=== PATIENT | male | born 1995 | race Caucasian/White ===

== ENCOUNTER 2022-01-01 01:22 | Emergency (ER) | payer OTHER, SELFPAY ==
--- NOTE | ~2022-01-01 | XR_ITS ---
EXAMINATION: XR foot RT min 3V DATE: 01/01/2022 02:05 INDICATION: Right foot pain, puncture wound TECHNIQUE: Dorsoplantar, lateral, and 2 oblique views of the right foot were obtained. COMPARISON: None. FINDINGS: There is medial soft tissue swelling of the foot. No radiopaque foreign body is identified. There is no fracture, dislocation, or subluxation. The joint spaces are normal. IMPRESSION: 1. Medial soft tissue swelling of the foot without acute osseous abnormality or radiopaque foreign fide dy. Reviewed, dictated and finalized at location B. IMPRESSION: 1. Medial soft tissue swelling of the foot without acute osseous abnormality or radiopaque foreign body.
[2022-01-01 01:22] VITALS: BP 153/76; PULSE 91; RESP 16; TEMP 36.3; O2SAT 96
[2022-01-01] MEDS: ACETAMINOPHEN 325 MG TABLET 650 MG PO (01:52)
[2022-01-01] MEDS: TETANUS,DIPHTHERIA,AC PERTUSSIS ADULT 0.5 ML (ADACEL) IM (01:56)
--- NOTE | 2022-01-01 02:10 | ED.WOUNDLAC ---
HPI - Wound/Laceration General Chief Complaint: Wound/Laceration Stated Complaint: PAIN Time Seen by Provider: 01/01/22 01:24 Source: patient and RN notes reviewed Mode of arrival: EMS Limitations: no limitations History of Present Illness Onset (ago): day(s) (1) Extremity Location: Left: foot Place: home Patient tetanus UTD: No Context: accidental Associated symptoms: pain Related Data Allergies Allergy/AdvReac Type Severity Reaction Status Date / Time morphine Allergy Swelling Verified 01/01/22 01:29 of Lip/Tongue/Throat Penicillins Allergy Swelling Verified 01/01/22 01:29 of Lip/Tongue/Throat Review of Systems Review of Systems: All systems reviewed & are unremarkable except as noted in HPI and below Constitutional: Constitutional: Reports no additional constitutional complaints Eyes: Eyes: Reports no additional eye complaints ENT: Reports system reviewed and no additional complaints, except as documented Cardiovascular: Cardiovascular: Reports no additional cardiovascular complaints Respiratory: Respiratory: Reports no additional respiratory complaints Gastrointestinal: Gastrointestinal: Reports no additional gastrointestinal complaints Musculoskeletal: Musculoskeletal: Reports no additional musculoskeletal complaints Integumentary/Breasts: Skin/Breast: Reports system reviewed and no additional complaints, except as docu Neurologic: Reports system reviewed and no additional complaints, except as documented Psychiatric: Psychiatric: Reports no additional psychiatric complaints Endocrine: Endocrine: Reports no additional endocrine complaints Hematologic/Lymphatic: Hematologic/Lymphatic: Reports no additional hematologic/lymphatic complaints Allergic/Immunologic: Allergic/Immunologic: Reports no additional allergic/immunologic complaints PMFSH Past Medical History Medical History A-fib Mitral regurgitation Mood disorder Seizures Surgical History Surgical History History of appendectomy Social History Social History Smoking status: Never smoker Alcohol intake: never Substance use: never Gender identity (if verbalized by the patient): Male Exam Const: General: healthy appearing and no acute distress Nutritional Appearance: well nourished Orientation/consciousness: patient oriented x3 Limitations: no limitations HENMT: Head: normal to inspection Ears: external ears normal, TM's normal bilaterally and EAC's normal General nose exam: Normal external nose present and Normal nares present Face and sinus: normal facial exam and sinuses nontender Mouth: Yes Normal oral and palatal mucosa present and Yes moist mucous membranes Teeth and gingiva: dentition normal Throat: posterior oropharynx normal Eyes: Conjunctivae: conjunctivae normal Pupils: Equal, round and reactive pupils present EOM: EOMs intact bilaterally Neck: Neck: normal visual inspection, no lymphadenopathy and no meningeal signs Chest: Chest palpation & inspection: normal inspection of the chest Resp: Effort & Inspection: normal respiratory effort Auscultation: clear to auscultation bilaterally Cardio: Rate: regular rate Rhythm: regular rhythm GI: GI Palp: Yes Soft to palpation and No Tenderness to palpation present (GI) Auscultation: normal bowel sounds : General: Yes bladder normal to palpation and Yes no CVA tenderness Back/Spine/Pelvis: Back: no CVA tenderness Skin: General skin exam: normal color Rashes: no rashes Wounds: no wounds Neuro: General: patient oriented x3, moves all extremities, no meningeal signs, no focal motor deficits and CN's II-XI intact bilaterally Cranial nerves: Yes Equal, round and reactive pupils present and Yes Nystagmus not present Speech: normal speech Gait exam (Neuro): Normal gait pres
[2022-01-01] MEDS: cefTRIAXone 1 GM, LIDOCAINE HCL 1% LOCAL INJ 2.1 ML IM (02:16)
[2022-01-01 03:05] VITALS: BP 135/72; PULSE 73; RESP 16; O2SAT 95
== END 2022-01-01 03:09 | disposition home or self-care (01) ==
PROVIDERS: Emergency Provider Emergency Medicine; PCP Family Medicine
DX: S91.331A Puncture wound without foreign body, right foot, initial encounter (principal); W45.0XXA Nail entering through skin, initial encounter
CPT/HCPCS: 73630; 90471; 90715; 96372; 99283; A9270; J0696

== ENCOUNTER 2022-03-23 13:43 | Outpatient (CLI) | payer OTHER, SELFPAY ==
--- NOTE | 2022-03-23 13:53 | ECG_ITS ---
Measurements Intervals [place] Rate: 72 P: 44 OK: 172 QRS: 58 QRSD: 96 T: 62 QT: 381 QTc: 420 Interpretive Statements SINUS RHYTHM NORMAL ECG NO PREVIOUS ECG AVAILABLE FOR COMPARISON Electronically Signed On 03-23-2022 15:59:33 CDT by Berto Meza D.O.
== END 2022-03-23 13:44 | disposition home or self-care (01) ==
LOC: CHSCARD 13:47
PROVIDERS: PCP Family Medicine; Visit Provider Internal Medicine Cardiovascular Disease
DX: I34.0 Nonrheumatic mitral (valve) insufficiency (principal)
CPT/HCPCS: 93005

== ENCOUNTER 2022-04-10 07:31 | Outpatient (CLI) | payer OTHER, SELFPAY ==
--- NOTE | 2022-04-10 07:53 | ECHO_ITS ---
Patient Info Name: Frank Johnson Age: 26 years : 1995 Gender: Male Ht: 67 in Wt: 320 lbs BSA: 2.70 m2 HR: 73 bpm BP: 149 / 80 mmHg Technical Quality: Fair Exam Date: 04/10/2022 8:20 AM Exam Location: [facility] Patient Status: Outpatient Admit Date: 04/10/2022 Staff Ordering Physician: Berto Meza DO Early Breastfeeding Care Specialist: Basilio Trevizo RDCS, RT Attending Provider: Berto Meza DO Referring Physician: Derrick MCKEON; Exam Type: CA echo dop color flow w con Study Info Indications I34.0 - Nonrheumatic mitral (valve) insufficiency Complete two-dimensional, color flow and Doppler transthoracic echocardiogram is performed. Strain analysis performed. Summary 1. Complete two-dimensional, color flow and Doppler transthoracic echocardiogram is performed. 2. Left ventricular chamber dimension is normal. 3. Left ventricular systolic function is normal, estimated at 60-65%. 4. There is moderately increased left ventricular wall thickness. 5. The left ventricular diastolic function is abnormal. 6. E/e' 13 is mildly elevated. 7. Global longitudinal strain is abnormal at -9.2%. 8. Left atrial chamber dimension is mildly enlarged. 9. There is mild aortic valve sclerosis. 10. There is moderate aortic valve regurgitation. 11. There is mild mitral valve regurgitation. 12. There is trace tricuspid valve regurgitation. 13. No pulmonary hypertension, estimated pulmonary arterial systolic pressure is 26 mmHg. 14. There is trace pulmonic regurgitation. Left Ventricle E/e' 13 is mildly elevated. Global longitudinal strain is abnormal at -9.2%. Left ventricular chamber dimension is normal. Left ventricular systolic function is normal, estimated at 60-65%. There is moderately increased left ventricular wall thickness. The left ventricular diastolic function is abnormal. Right Ventricle Right ventricular systolic function is normal and with normal TAPSE 2.8 cm. Right ventricular chamber dimension is normal. Left Atria Left atrial chamber dimension is mildly enlarged. Right Atria Right atrial chamber dimension is normal. Aortic Valve The aortic valve is trileaflet. There is mild aortic valve sclerosis. There is no aortic valve stenosis. There is moderate aortic valve regurgitation. Pulmonic Valve There is trace pulmonic regurgitation. Mitral Valve There is no mitral valve stenosis. There is mild mitral valve regurgitation. Tricuspid Valve There is trace tricuspid valve regurgitation. No pulmonary hypertension, estimated pulmonary arterial systolic pressure is 26 mmHg. Pericardium/Pleural There is no pericardial effusion. Inferior Vena Cava Normal inferior vena cava with >50% collapse upon inspiration consistent with normal right atrial pressure, 5 mmHg. Aorta The aortic root size at the sinus of Valsalva is normal. Left Ventricular Outflow Tract Name Value Normal LVOT 2D LVOT Diameter 2.36 cm LVOT Doppler LVOT Peak Gradient 3 mmHg LVOT Mean Gradient 2 mmHg LVOT VTI 20.61 cm LVO
== END 2022-04-10 07:32 | disposition home or self-care (01) ==
LOC: ANHCARD 07:33
PROVIDERS: PCP Family Medicine; Visit Provider Internal Medicine Cardiovascular Disease
DX: I34.0 Nonrheumatic mitral (valve) insufficiency (principal); I35.1 Nonrheumatic aortic (valve) insufficiency
CPT/HCPCS: 93306

== ENCOUNTER 2022-09-25 15:20 | Emergency (ER) | payer OTHER, SELFPAY ==
[2022-09-25 15:20] VITALS: BP 127/63; PULSE 95; RESP 18; TEMP 36.2; O2SAT 97
[2022-09-25] MEDS: ORPHENADRINE CITRATE 30 MG/ML 2 ML VIAL 60 MG IM (16:04)
[2022-09-25 16:16] VITALS: BP 132/66; PULSE 74; RESP 20; O2SAT 97
--- NOTE | 2022-09-26 02:36 | ED.BACK ---
HPI - Back Pain/Injury General Chief Complaint: Back Pain/Injury Stated Complaint: lower back pain Time Seen by Provider: 09/25/22 15:56 Source: patient Mode of arrival: ambulatory Limitations: no limitations History of Present Illness MD elicited complaint: back pain Onset (ago): day(s) (2) Timing: constant Severity: severe Similar Symptoms Previously: No Quality: stabbing Location: lumbar spine Radiation: none Exacerbating factors: movement Relieving factors: none Context: turning/twisting Associated symptoms: denies other symptoms Related Data Allergies Allergy/AdvReac Type Severity Reaction Status Date / Time morphine Allergy Swelling Verified 04/15/22 09:17 of Lip/Tongue/Throat Penicillins Allergy Swelling Verified 04/15/22 09:17 of Lip/Tongue/Throat Review of Systems Review of Systems: All systems reviewed & are unremarkable except as noted in HPI and below Constitutional: Constitutional: Denies chills and Denies fever(s) ENT: Denies vertigo, Denies dizziness, Denies epistaxis, Denies nasal congestion and Denies sore throat Cardiovascular: Cardiovascular: Denies chest pain Respiratory: Respiratory: Denies cough and Denies dyspnea Gastrointestinal: Gastrointestinal: Denies abdominal pain, Denies diarrhea, Denies nausea and Denies vomiting Genitourinary: Genitourinary: Denies dysuria and Denies urinary incontinence Neurologic: Denies vertigo and Denies weakness Endocrine: Endocrine: Denies polydipsia Allergic/Immunologic: Allergic/Immunologic: Denies tongue swelling PMFSH Past Medical History Medical History A-fib Mitral regurgitation Mood disorder Seizures Surgical History Surgical History History of appendectomy Social History Social History Smoking status: Never smoker Alcohol intake: never Substance use: never Gender identity (if verbalized by the patient): Male Exam Const: General: healthy appearing Nutritional Appearance: well nourished Limitations: no limitations HENMT: Head: normal to inspection Ears: external ears normal Face/Nose/Sinus: Normal external nose present Face and sinus: normal facial exam Mouth: Yes Normal oral and palatal mucosa present Teeth and gingiva: dentition normal Throat: posterior oropharynx normal Eyes: Conjunctivae: conjunctivae normal Neck: Neck: normal visual inspection Chest: Chest palpation & inspection: normal inspection of the chest Resp: Effort & Inspection: normal respiratory effort Cardio: Rate: regular rate Rhythm: regular rhythm Heart sounds: no murmurs Back/Spine/Pelvis: Back: no CVA tenderness Skin: General skin exam: normal color Rashes: no rashes Neuro: Speech: normal speech Gait exam (Neuro): Normal gait present Extrem: General: normal to inspection Psych: Mental Status: mental status grossly normal Affect: normal affect Attitude: cooperative Course Vital Signs Vital signs: Vital Signs Temperature 36.2 C L 09/25/22 15:20 Pulse Rate 95 09/25/22 15:20 Respiratory Rate 18 09/25/22 15:20 Blood Pressure 127/63 09/25/22 15:20 Pulse Oximetry 97 09/25/22 15:20 Oxygen Delivery Room Air 09/25/22 15:20 Temperature 36.2 C L 09/25/22 15:20 Pulse Rate 74 09/25/22 16:16 Respiratory Rate 20 09/25/22 16:16 Blood Pressure 132/66 09/25/22 16:16 Pulse Oximetry 97 09/25/22 16:16 Oxygen Delivery Room Air 09/25/22 15:20 Discharge Plan Discharge Clinical Impression: Strain of lumbar region Patient Disposition: Home, Self-Care Condition: Stable Instructions: Acute Low Back Pain (ED), Lower Back Exercises (ED) Prescriptions: New cyclobenzaprine 10 mg tablet 10 mg PO TID PRN (Reason: muscle spasm) Qty: 14 0RF No Action oxcarbazepine 300 mg tablet 450 mg PO BID Q
== END 2022-09-25 16:20 | disposition home or self-care (01) ==
PROVIDERS: Emergency Provider Family Medicine; PCP Family Medicine
DX: S39.012A Strain of muscle, fascia and tendon of lower back, initial encounter (principal); X50.1XXA Overexertion from prolonged static or awkward postures, initial encounter; I48.20 Chronic atrial fibrillation, unspecified; I34.0 Nonrheumatic mitral (valve) insufficiency; R56.9 Unspecified convulsions; F39 Unspecified mood [affective] disorder
CPT/HCPCS: 96372; 99283; J2360

== ENCOUNTER 2022-11-25 10:21 | Outpatient (CLI) | payer OTHER, SELFPAY ==
[2022-11-25 11:04] LABS: Chloride 106 mmol/L (98-107); Potassium 3.7 mmol/L (3.4-5.0); Sodium 139 mmol/L (137-145)
[2022-11-25 11:05] LABS: Anion Gap 8 mmol/L (8-16); Blood Urea Nitrogen 9 mg/dL (9-20); Calcium 8.9 mg/dL (8.4-10.2); Carbon Dioxide 25 mmol/L (22-30); Estimated Glomerular Filt Rate > 60; Glucose 101 mg/dL (65-110)
== END 2022-11-25 10:22 | disposition home or self-care (01) ==
LOC: ANHLAB 10:22
PROVIDERS: PCP Family Medicine; Visit Provider Student in an Organized Health Care Education/Training Program
DX: R56.9 Unspecified convulsions (principal)
CPT/HCPCS: 36415; 80048

== ENCOUNTER 2023-02-11 11:05 | Emergency (ER) | payer OTHER, SELFPAY ==
[2023-02-11 11:14] VITALS: BP 135/67; PULSE 69; RESP 18; TEMP 37.1; O2SAT 99
--- NOTE | 2023-02-11 11:23 | ED.EAR ---
HPI - Ear Problem General Chief complaint: Ear Stated complaint: left ear pain Time Seen by Provider: 02/11/23 11:18 Source: patient Mode of arrival: ambulatory Limitations: no limitations History of Present Illness HPI Narrative: this is a 27-year-old male that presents with left ear pain and discomfort which states that he thinks that he used a Q-tip and went too far and irritated is left ear canal, currently he says his pain is much improved currently no drainage from the ear no fever chills no sinus congestion or drainage no shortness of breath. Complaint: ear pain Location: left ear Duration: resolved Severity: mild Relieving factors: nothing Related Data Allergies Allergy/AdvReac Type Severity Reaction Status Date / Time morphine Allergy Swelling Verified 02/11/23 11:14 of Lip/Tongue/Throat Penicillins Allergy Swelling Verified 02/11/23 11:14 of Lip/Tongue/Throat Review of Systems Review of Systems: All systems reviewed & are unremarkable except as noted in HPI and below PMFSH Past Medical History Medical History A-fib Mitral regurgitation Mood disorder Seizures Surgical History Surgical History History of appendectomy Social History Social History Tobacco type: e-cigarettes/vaping Alcohol intake: never Substance use: never Substance use type: does not use Lack of Transportation: YES Lack of Food: Often True Current Housing: I Have Housing Concerned About Future Housing: No Difficulty Paying Gas/Electric Bills: YES Difficulty Paying for Meds: No Currently Unemployed: YES Education: High School Diploma/GED Difficulty w/ Childcare or Family Care: No Living arrangements: alone Gender identity (if verbalized by the patient): Male Exam Const: General: healthy appearing and no acute distress Nutritional Appearance: well nourished Orientation/consciousness: patient oriented x3 Limitations: no limitations HENMT: Head: normal to inspection Ears: external ears normal and TM's normal bilaterally Face/Nose/Sinus: Normal external nose present Face and sinus: normal facial exam Neck: Neck: normal visual inspection and no lymphadenopathy Chest: Chest palpation & inspection: normal inspection of the chest Resp: Effort & Inspection: normal respiratory effort Auscultation: clear to auscultation bilaterally Cardio: Rate: regular rate Rhythm: regular rhythm Course Course Emergency Course: Inspection of bilateral ear canal shows some mild increase laxity buildup dullness in his tympanic membrane on the on the left and advised patient to take [id number] antihistamines. Vital Signs Vital signs: Vital Signs Temperature 37.1 C 02/11/23 11:14 Pulse Rate 69 02/11/23 11:14 Respiratory Rate 18 02/11/23 11:14 Blood Pressure 135/67 02/11/23 11:14 Pulse Oximetry 99 02/11/23 11:14 Oxygen Delivery Room Air 02/11/23 11:14 Temperature 37.1 C 02/11/23 11:14 Pulse Rate 69 02/11/23 11:14 Respiratory Rate 18 02/11/23 11:14 Blood Pressure 135/67 02/11/23 11:14 Pulse Oximetry 99 02/11/23 11:14 Oxygen Delivery Room Air 02/11/23 11:14 Medical Decision Making Vital Signs Vital Signs: Vital Signs Temperature 37.1 C 02/11/23 11:14 Pulse Rate 69 02/11/23 11:14 Respiratory Rate 18 02/11/23 11:14 Blood Pressure 135/67 02/11/23 11:14 Pulse Oximetry 99 02/11/23 11:14 Oxygen Delivery Room Air 02/11/23 11:14 Temperature 37.1 C 02/11/23 11:14 Pulse Rate 69 02/11/23 11:14 Respiratory Rate 18 02/11/23 11:14 Blood Pressure 135/67 02/11/23 11:14 Pulse Oximetry 99 02/11/23 11:14 Oxygen Delivery Room Air 02/11/23 11:14 Critical Care Time Critical Care Time Critical Care Time: No Discharge Plan Disc
== END 2023-02-11 11:33 | disposition home or self-care (01) ==
PROVIDERS: Emergency Provider Emergency Medicine; PCP Family Medicine
DX: H92.02 Otalgia, left ear (principal); I48.91 Unspecified atrial fibrillation; G40.909 Epilepsy, unspecified, not intractable, without status epilepticus; I34.0 Nonrheumatic mitral (valve) insufficiency
CPT/HCPCS: 99281